=== PATIENT | female | born 1935 | race Caucasian/White ===

== ENCOUNTER → 2018-02-16 | Outpatient (CLI) | payer MEDICARE, MEDICAID ==
--- NOTE | 2018-02-16 12:44 | RADIOLOGY REPORT (SQ) ---
EXAM DESCRIPTION: FOOT RIGHT COMPLETE COMPLETED DATE/TIME: 02/16/2018 11:52 am REASON FOR STUDY: RT TOE PAIN right great toe pain and swelling for 1 month, no known injury COMPARISON: None. NUMBER OF VIEWS: Three views. TECHNIQUE: AP, lateral and oblique radiographic images acquired of the right foot. LIMITATIONS: None. FINDINGS: MINERALIZATION: Osteopenic BONES: No acute fracture or dislocation. No worrisome bone lesions. JOINTS: No effusions. SOFT TISSUES: No soft tissue swelling. No foreign body. OTHER: No other significant finding. IMPRESSION: NEGATIVE STUDY OF THE RIGHT FOOT. NO RADIOGRAPHIC EVIDENCE OF ACUTE INJURY. TECHNICAL DOCUMENTATION: JOB ID: [id number] [employer]- All Rights Reserved Reading location - IP/workstation name: [email or web address]
== END ==
LOC: OD 11:23
PROVIDERS: ATTEND Family Medicine
DX: M79.674 Pain in right toe(s) (principal)

== ENCOUNTER 2018-08-14 16:44 | Inpatient (IN) | payer MEDICARE, MEDICAID ==
[2018-08-14] MEDS ORDERED: METOCLOPRAMIDE HCL INJ/PF 10 MG/2 ML SDV IV ONE (18:26)
--- NOTE | 2018-08-14 18:54 | RADIOLOGY REPORT (SQ) ---
EXAM DESCRIPTION: CT HEAD WITHOUT COMPLETED DATE/TIME: 08/14/2018 6:39 pm REASON FOR STUDY: Headache, known mass COMPARISON: CT 03/16/2015 MR 03/16/2015 TECHNIQUE: Axial images acquired through the brain without intravenous contrast. Images reviewed wi th bone, brain and subdural windows. Additional sagittal and coronal reconstructions were generated. Images stored on PACS. All CT scanners at this facility use dose modulation, iterative reconstruction, and/or weight based d osing when appropriate to reduce radiation dose to as low as reasonably achievable (ALARA). [facility]: Dose Right [facility]: CareDose [facility]: Dose Right [facility]: Teradose 4D [facility]: [employer] RADIATION DOSE: CT Rad equipment meets quality standard of care and radiation dose reduction techniq ues were employed. CTDIvol: 53.2 mGy. DLP: 991 mGy-cm. mGy. LIMITATIONS: None. FINDINGS: VENTRICLES: Normal size and contour. CEREBRUM: There is enlarging extra-axial mass in the superolateral aspect of the right frontal lobe t hat now measures 4 cm. A few mm midline shift is seen. Areas of low density in the white matter most likely chronic small vessel ischemic changes. CEREBELLUM: No masses. No hemorrhage. No alteration of density. No evidence for acute infarction. EXTRAAXIAL SPACES: No fluid collections. No masses. ORBITS AND GLOBE: No intra- or extraconal masses. Normal contour of globe without masses. CALVARIUM: No fracture. PARANASAL SINUSES: No fluid or mucosal thickening. SOFT TISSUES: No mass or hematoma. OTHER: No other significant finding. IMPRESSION: Right frontal mass is significantly larger than on the prior study. Likely meningioma. There is now a few mm midline shift. EVIDENCE OF ACUTE STROKE: NO. COMMENT: Quality ID # [id number]: Final reports with documentation of one or more dose reduction techniques (e.g., Automated exposure control, adjustment of the mA and/or kV according to patient size, use of iterative reconstruction technique) TECHNICAL DOCUMENTATION: JOB ID: [id number] [employer]- All Rights Reserved Reading location - IP/workstation name: [email or web address]
[2018-08-14 19:25] LABS: ABSOLUTE EOSINOPHILS # (AUTO) 0.3 10^3/uL (0.0-0.6); ABSOLUTE LYMPHOCYTES (AUTO) 2.9 10^3/uL (0.5-4.7); ABSOLUTE MONOCYTES (AUTO) 0.4 10^3/uL (0.1-1.4); ABSOLUTE NEUT (AUTO) 2.8 10^3/uL (1.7-8.2); BASOPHILS % (AUTO) 0.7 % (0-2); HEMATOCRIT 33.5 % (36.0-47.0); HEMOGLOBIN 11.6 g/dL (12.0-15.5); LYMPHOCYTES % (AUTO) 45.6 % (13-45); MEAN CORPUSCULAR HEMOGLOBIN 35.8 pg (27.0-33.4); MEAN CORPUSCULAR HGB CONC 34.6 g/dL (32.0-36.0); MEAN CORPUSCULAR VOLUME 104 fl (80-97); MONOCYTES % (AUTO) 6.1 % (3-13); PLATELET COUNT 190 10^3/uL (150-450); RED BLOOD COUNT 3.24 10^6/uL (3.72-5.28); RED CELL DISTRIBUTION WIDTH 14.5 % (11.5-14.0); SEGMENTED NEUTROPHILS % (AUTO) 43.6 % (42-78); TOTAL CELLS COUNTED % (AUTO) 100 %; WHITE BLOOD COUNT 6.3 10^3/uL (4.0-10.5)
[2018-08-14 19:33] LABS: INTERNATIONAL RATION (INR) 1.34; PROTHROMBIN TIME 17.2 SEC (11.4-15.4)
[2018-08-14 19:34] LABS: PARTIAL THROMBOPLASTIN TIME 38.7 SEC (23.5-35.8)
[2018-08-14 19:38] LABS: ANION GAP 8 (5-19); BLOOD UREA NITROGEN 20 mg/dL (7-20); CALCIUM 9.5 mg/dL (8.4-10.2); CARBON DIOXIDE 22 mmol/L (22-30); CHLORIDE 108 mmol/L (98-107); GLUCOSE 92 mg/dL (75-110); POTASSIUM 4.4 mmol/L (3.6-5.0); SODIUM 138.3 mmol/L (137-145)
[2018-08-14] MEDS ORDERED: DEXAMETHASONE SOD PHOS INJ 10 MG/1 ML VIAL IV ONE (20:01)
--- NOTE | 2018-08-14 20:01 | ER Document Report ---
ED General - General Chief Complaint: Headache Stated Complaint: HEADACHE Time Seen by Provider: 08/14/18 18:25 Cannot obtain history due to: Altered mental status Notes: Patient is an 82-year-old female with a past medical history of a right frontal meningioma, atrial fibrillation, hypertension who presents with family due to concern of a headache and increasing lethargy throughout the day today. Family states the patient has not been acting like herself, has seemed increasingly confused. The patient herself is extremely lethargic on my assessment, does not provide any meaningful history. Family states the patient has been following with neurology and neurosurgery at [facility] and has been diagnosed as having recurrent seizures due to the intra-cranial mass. TRAVEL OUTSIDE OF THE [place] IN LAST 30 DAYS: No - Related Data Allergies/Adverse Reactions: hydromorphone HCl [From Dilaudid] Allergy (Verified 03/16/15 14:54) levofloxacin [From Levaquin] Allergy (Verified 03/16/15 14:54) lisinopril [Lisinopril] Allergy (Verified 03/16/15 14:54) Angioneurotic Edema Sulfa (Sulfonamide Antibiotics) Allergy (Verified 03/16/15 14:54) tetracycline [Tetracycline] Allergy (Verified 03/16/15 14:54) fluticasone [Fluticasone] Adverse Reaction (Verified 03/16/15 14:54) Anxiety salmeterol [Salmeterol] Adverse Reaction (Verified 03/16/15 14:54) Past Medical History - General Information source: Relative - Social History Smoking Status: Former Smoker Chew tobacco use (# tins/day): No Drug Abuse: None Lives with: Family Family History: CAD, CVA, Hypertension Patient has suicidal ideation: No Patient has homicidal ideation: No - Past Medical History Cardiac Medical History: Reports: Hx Atrial Fibrillation, Hx Congestive Heart Failure, Hx Hypercholesterolemia, Hx Hypertension, Hx Peripheral Vascular Disease Pulmonary Medical History: Reports: Hx COPD Neurological Medical History: Reports: Hx Migraine, Hx Seizures Renal/ Medical History: Denies: Hx Peritoneal Dialysis GI Medical History: Reports: Hx Diverticulitis Past Surgical History: Reports: Hx Bowel Surgery - abdominal aortic mesh, Hx Cardiac Surgery, Hx Hysterectomy, Hx Orthopedic Surgery - lower back - Immunizations Hx Diphtheria, Pertussis, Tetanus Vaccination: No Review of Systems - Review of Systems -: Yes ROS unobtainable due to patient's medical condition Physical Exam - Vital signs Vitals: Temp Pulse Resp BP Pulse Ox 98.2 F 110 H 20 143/65 H 99 08/14/18 16:56 08/14/18 16:56 08/14/18 16:56 08/14/18 16:56 08/14/18 16:56 Interpretation: Hypertensive, Tachycardic Notes: PHYSICAL EXAMINATION: GENERAL: Lethargic, lying in bed, not speaking HEAD: Atraumatic, normocephalic. EYES: Pupils equal round and reactive to light, extraocular movements intact, sclera anicteric, conjunctiva are normal. ENT: nares patent, oropharynx clear without exudates. Moderately dry mucous membranes. NECK: Normal range of motion, supple without lymphadenopathy LUNGS: Breath sounds clear to auscultation bilaterally and equal. No wheezes rales or rhonchi. HEART: Regular tachycardia without murmurs ABDOMEN: Soft, nontender, normoactive bowel sounds. No guarding, no rebound. No masses appreciated. EXTREMITIES: no pitting or edema. No cyanosis. NEUROLOGICAL: Face symmetric. Tongue protrudes midline. Extraocular motions intact. Pupils are 2 mm and equally reactive. Not speaking or responding appropriately to questions. Follows commands in all extremities slowly. Appears to have equal strength bilaterally although somewhat difficult to ascertain as patient has difficulty following formal strength testing commands. Sensation is grossly intact throughout. PSYCH: Lethargic, not answering questions SKIN: Warm, Dry, normal turgor, no rashes or lesions noted. Course - Re-evaluation Re-evalutation: 08/14/18 19:55 Presentation of lethargic, 82-year-old female, does not say much of anything while I am in the room. Presents with family states patient has had a progressively worsening headache throughout the day today and has become increasingly confused and lethargic. CT the head does show that her meningioma is now 4 cm with approximately 3 mm of midline shift, likely the cause of the patient's current clinical presentation. I had an extended conversation with the family regarding the patient's overall very poor prognosis. We did discuss that a neurosurgical option could potentially be life saving although we did review at length the multitude of complications for which the patient is at risk given her advanced age and medical comorbidities. After this conversation, the family did elect that I contacted [facility], request transfers that they can again discuss with neurosurgery at [facility] as well as have a palliative care consultation. I did emphasize that given the patient's lethargy, surgery would likely be considered urgent or emergent. I have contacted [facility] and requested transfer although they notify me they do not currently have any beds. The patient has received metoclopramide for her headache with some relief. Dexamethasone is also been administered. Her neurologic exam is without focality, she is delayed in her response to all commands but does follow all 4 extremities. She has no focal weakness. She is globally confused, states only her name. Family is clear to state that this is not baseline. 08/14/18 21:10 [address] Dietrich the neurosurgeon on-call at [facility], advises loading the patient with Keppra, states that the patient can be transferred to [facility] but they do not have any beds and that the patient will have to be placed on a wait list. He is not currently the accepting physician, has requested that medicine admit the patient. 08/14/18 21:57 I did speak with Dr. Clement Abrams who accepted the patient. Shortly thereafter I again discussed with the family about the plan of care and they informed me that after our initial conversation they have continued to pray and think about it and I decided that they do not want to proceed with any kind of surgical intervention or any aggressive intervention of any kind. They requested inpatient hospitalization for comfort measures followed by transition to home hospice. Will contact Dr. Yin to discuss. 08/14/18 22:[address] Yin who has accepted the patient for admission. - Vital Signs Vital signs: Temp Pulse Resp BP Pulse Ox 98.2 F 110 H 19 123/98 H 97 08/14/18 16:56 08/14/18 16:56 08/15/18 00:01 08/15/18 00:01 08/15/18 00:01 - Laboratory Result Diagrams: 08/14/18 19:05 08/14/18 19:05 Laboratory results interpreted by me: 08/14/18 08/14/18 08/14/18 19:05 19:05 19:05 RBC 3.24 L Hgb 11.6 L Hct 33.5 L MCV 104 H MCH 35.8 H RDW 14.5 H Lymphocytes % 45.6 H PT 17.2 H APTT 38.7 H Chloride 108 H Est GFR (Non-Af Amer) 50 L - Diagnostic Test Radiology reviewed: Image reviewed, Reports reviewed Radiology results interpreted by me: 08/14/18 22:35 CT head: Mass in the right frontal lobe with slight midline shift right to left Critical Care Note - Critical Care Note Total time excluding time spent on procedures (mins): 40 Comments: Critical care time spent obtaining history from patient or surrogate, discussions with consultants, development of treatment plan with patient or surrogate, evaluation of patient's response to treatment, examination of patient, ordering and performing treatments and interventions, ordering and review of laboratory studies, re-evaluation of patient's condition, ordering and review of radiographic studies and review of old charts Discharge - Discharge Clinical Impression: Encephalopathy, Seizure disorder, Intracranial mass, Lethargy Condition: Fair Disposition: ADMITTED INPATIENT Admitting Provider: Hospitalist Unit Admitted: Medical Floor
[2018-08-14] MEDS ORDERED: LEVETIRACETAM 1000 MG/NACL-ISO 1,000 MG/100 ML RTUPB IV ONE (21:09)
[2018-08-14] MEDS ORDERED: DEXAMETHASONE SOD PHOS INJ 10 MG/1 ML VIAL IV SCH (22:00)
[2018-08-14] MEDS ORDERED: ONDANSETRON HCL INJ/PF 4 MG/2 ML SDV IV PRN (22:28)
[2018-08-14] MEDS ORDERED: ACETAMINOPHEN 325 MG TABLET PO PRN (22:28)
[2018-08-14] MEDS ORDERED: LORAZEPAM 0.5 MG TABLET PO PRN (22:32)
[2018-08-15] MEDS: MORPHINE SULFATE 10 MG/ML INJ IV PRN ×3 (01:06→10:31)
--- NOTE | 2018-08-15 05:23 | PDOC H&P ---
History of Present Illness Admission Date/PCP: 08/14/18 22:45 SHIRA DURAN DO Patient complains of: Headache History of Present Illness: LENKA HARTMANN is a 82 year old female with a past medical history of meningioma. Presenting with lethargy. Family is prompted to emergency room for 24 hours of confusion and lethargy with headache. In the emergency room she is found to have a 4 cm meningioma with 3 mm of midline shift. Given the patient's grave prognosis family at bedside elects for comfort measures only. She is started on dexamethasone and Keppra then referred to the hospitalist for admission. Past Medical History Cardiac Medical History: Reports: Atrial Fibrillation, Congestive Heart Failure, Hyperlipidema, Hypertension, Peripheral Vascular Disease Pulmonary Medical History: Reports: Chronic Obstructive Pulmonary Disease (COPD) Neurological Medical History: Reports: Migraine, Seizures GI Medical History: Reports: Diverticulitis Past Surgical History Past Surgical History: Reports: Hysterectomy, Orthopedic Surgery - lower back Social History Information Source: [facility] [employer], [facility], 1928–1983 Records Lives with: Family Smoking Status: Former Smoker - Advance Directive Resuscitation Status: Comfort Measures Only Family History Family History: CAD, CVA, Hypertension Parental Family History Reviewed: Yes Children Family History Reviewed: Yes Sibling(s) Family History Reviewed.: Yes Medication/Allergy Home Medications: Alendronate Sodium [Fosamax] 70 mg PO 03/16/15 Apixaban [Eliquis 5 mg Tablet] 5 mg PO BID 03/16/15 Cholecalciferol (Vitamin D3) [D3-2000] 2,000 unit PO DAILY 03/16/15 Diltiazem HCl [Diltiazem 24Hr ER] 240 mg PO DAILY 03/16/15 Levetiracetam 250 mg PO BID 03/16/15 Levothyroxine Sodium [Synthroid 0.112 mg Tablet] 112 mcg PO DAILY 03/16/15 Lorazepam [Ativan 0.5 mg Tablet] 0.5 mg PO QID PRN 03/16/15 Multivitamin [Multivitamins] 1 each PO DAILY 03/16/15 Nitroglycerin [Nitrostat 0.4 mg (1/150 Gr) Tabs 25/Bottle] 1 tab SL Q5MP PRN 03/16/15 Omeprazole 20 mg PO DAILY 03/16/15 Paroxetine HCl [Paxil] 30 mg PO DAILY 08/06/15 Prochlorperazine Maleate 10 mg PO Q6H PRN 03/16/15 Spironolactone 25 mg PO DAILY 03/16/15 Allergies/Adverse Reactions: hydromorphone HCl [From Dilaudid] Allergy (Verified 03/16/15 14:54) levofloxacin [From Levaquin] Allergy (Verified 03/16/15 14:54) lisinopril [Lisinopril] Allergy (Verified 03/16/15 14:54) Angioneurotic Edema Sulfa (Sulfonamide Antibiotics) Allergy (Verified 03/16/15 14:54) tetracycline [Tetracycline] Allergy (Verified 03/16/15 14:54) fluticasone [Fluticasone] Adverse Reaction (Verified 03/16/15 14:54) Anxiety salmeterol [Salmeterol] Adverse Reaction (Verified 03/16/15 14:54) Review of Systems ROS unobtainable: Due to mental status - Sedated Physical Exam Vital Signs: Temp Pulse Resp BP Pulse Ox 98.2 F 110 H 19 123/98 H 97 08/14/18 16:56 08/14/18 16:56 08/15/18 00:01 08/15/18 00:01 08/15/18 00:01 Intake & Output 08/13/18 08/14/18 08/15/18 11:59 11:59 11:59 Intake Total 100 Balance 100 Weight 80.4 kg General appearance: PRESENT: severe distress, other - Pale chronically ill- appearing, moaning Head exam: PRESENT: atraumatic, normocephalic Eye exam: PRESENT: conjunctiva pink, EOMI, PERRLA. ABSENT: scleral icterus Ear exam: PRESENT: normal external ear exam Mouth exam: PRESENT: moist, tongue midline Neck exam: ABSENT: carotid bruit, JVD, lymphadenopathy, thyromegaly Respiratory exam: PRESENT: clear to auscultation baylee. ABSENT: rales, rhonchi, wheezes Cardiovascular exam: PRESENT: RRR. ABSENT: diastolic murmur, rubs, systolic murmur Pulses: PRESENT: normal dorsalis pedis pul Vascular exam: PRESENT: normal capillary refill GI/Abdominal exam: PRESENT: normal bowel sounds, soft. ABSENT: distended, guarding, mass, organolmegaly, rebound, tenderness Rectal exam: PRESENT: deferred Extremities exam: PRESENT: full ROM. ABSENT: calf tenderness, clubbing, pedal edema Neurological exam: PRESENT: altered, oriented to person. ABSENT: oriented to place, motor sensory deficit Psychiatric exam: PRESENT: appropriate affect, normal mood. ABSENT: homicidal ideation, suicidal ideation Focused psych exam: PRESENT: restlessness Skin exam: PRESENT: dry, intact, warm. ABSENT: cyanosis, rash Results Laboratory Results: 08/14/18 19:05 08/14/18 19:05 08/14/18 08/14/18 19:05 19:05 WBC 6.3 RBC 3.24 L Hgb 11.6 L Hct 33.5 L MCV 104 H MCH 35.8 H MCHC 34.6 RDW 14.5 H Plt Count 190 Seg Neutrophils % 43.6 Lymphocytes % 45.6 H Monocytes % 6.1 Eosinophils % 4.0 Basophils % 0.7 Absolute Neutrophils 2.8 Absolute Lymphocytes 2.9 Absolute Monocytes 0.4 Absolute Eosinophils 0.3 Absolute Basophils 0.0 Sodium 138.3 Potassium 4.4 Chloride 108 H Carbon Dioxide 22 Anion Gap 8 BUN 20 Creatinine 1.05 Est GFR ( Amer) > 60 Est GFR (Non-Af Amer) 50 L Glucose 92 Calcium 9.5 Impressions: Head CT 08/14/18 18:25 IMPRESSION: Right frontal mass is significantly larger than on the prior study. Likely meningioma. There is now a few mm midline shift. EVIDENCE OF ACUTE STROKE: NO. Assessment & Plan - Diagnosis (1) Intracranial mass Is this a current diagnosis for this admission?: Yes Plan: Inoperable large meningioma with mass-effect and midline shift. Dexamethasone and Keppra initiated. Comfort measures only (2) Encephalopathy Is this a current diagnosis for this admission?: Yes Plan: Secondary to #1, morphine (3) Lethargy Is this a current diagnosis for this admission?: Yes Plan: Secondary to #1, supportive care comfort measures only - Time Time Spent: 30 to 50 Minutes - Inpatient Certification Medical Necessity: Need Close Monitoring Due to Risk of Patient Decompensation
[2018-08-15] MEDS: DEXAMETHASONE SOD PHOS INJ 10 MG/1 ML VIAL IV SCH ×3 (05:36→21:27)
[2018-08-15] MEDS: DILTIAZEM HCL 240 MG CAPSULE.CR PO SCH (10:31)
--- NOTE | 2018-08-15 14:05 | PDOC PROGRESS REPORT ---
Subjective Progress Note for:: 08/15/18 Subjective:: This is 82 years old female patient brought by family members with chief complaint of lethargy confusion and headache. Her CT scan of the head depicted large mass over the right frontal lobe causing midline shift to the left. The radiologist assumed this might to be a meningioma. Because of patient is serious situation the caretakers opted for comfort care. 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 ABSENT: diastolic murmur, rubs, systolic murmur Neurological exam: PRESENT: alert, awake Results Laboratory Results: 08/14/18 19:05 08/14/18 19:05 08/14/18 08/14/18 19:05 19:05 WBC 6.3 RBC 3.24 L Hgb 11.6 L Hct 33.5 L MCV 104 H MCH 35.8 H MCHC 34.6 RDW 14.5 H Plt Count 190 Seg Neutrophils % 43.6 Lymphocytes % 45.6 H Monocytes % 6.1 Eosinophils % 4.0 Basophils % 0.7 Absolute Neutrophils 2.8 Absolute Lymphocytes 2.9 Absolute Monocytes 0.4 Absolute Eosinophils 0.3 Absolute Basophils 0.0 Sodium 138.3 Potassium 4.4 Chloride 108 H Carbon Dioxide 22 Anion Gap 8 BUN 20 Creatinine 1.05 Est GFR ( Amer) > 60 Est GFR (Non-Af Amer) 50 L Glucose 92 Calcium 9.5 Impressions: Head CT 08/14/18 18:25 IMPRESSION: Right frontal mass is significantly larger than on the prior study. Likely meningioma. There is now a few mm midline shift. EVIDENCE OF ACUTE STROKE: NO. Assessment & Plan - Diagnosis (1) Encephalopathy Is this a current diagnosis for this admission?: Yes Plan: Due to #2 (2) Intracranial mass Is this a current diagnosis for this admission?: Yes Plan: Right frontal mass probably meningioma. Patient has been started on dexamethasone (3) Seizure disorder Is this a current diagnosis for this admission?: Yes Plan: Continue Keppra (4) Atrial fibrillation with rapid ventricular response Is this a current diagnosis for this admission?: Yes Plan: Rate controlled
[2018-08-15] MEDS ORDERED: DIPHENHYDRAMINE HCL 25 MG/10 ML UDC PO PRN (18:41)
[2018-08-15] MEDS ORDERED: DIPHENHYDRAMINE HCL 25 MG/10 ML UDC ONE (18:58)
[2018-08-16] MEDS: DEXAMETHASONE SOD PHOS INJ 10 MG/1 ML VIAL IV SCH ×3 (05:26→21:20)
[2018-08-16] MEDS: DILTIAZEM HCL 240 MG CAPSULE.CR PO SCH (09:42)
[2018-08-16] MEDS: GUAIFENESIN 600 MG TABLET.SA PO SCH ×2 (12:52→21:20)
--- NOTE | 2018-08-16 15:29 | PDOC PROGRESS REPORT ---
Subjective Progress Note for:: 08/16/18 Subjective:: his is 82 years old female patient brought by family members with chief complaint of lethargy confusion and headache. Her CT scan of the head depicted large mass over the right frontal lobe causing midline shift to the left. Per patient's daughter, patient has been followed up by a neurosurgeon who scheduled him for surgery. But patient's daughter opted for comfort care because of patient is underlying multiple comorbidities and in discussion with ER attending at [facility]. As patient's conditions improved the daughter changed her mind for the second time and wants to discuss with her neurosurgeon. This morning I seen patient resting in bed and she complains of nagging cough. Otherwise she is awake alert and oriented. 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 ABSENT: rales, rhonchi, wheezes Cardiovascular exam: PRESENT: RRR. ABSENT: diastolic murmur, rubs, systolic murmur Neurological exam: PRESENT: alert, awake Results Laboratory Results: 08/14/18 19:05 08/14/18 19:05 Impressions: Head CT 08/14/18 18:25 IMPRESSION: Right frontal mass is significantly larger than on the prior study. Likely meningioma. There is now a few mm midline shift. EVIDENCE OF ACUTE STROKE: NO. Assessment & Plan - Diagnosis (1) Encephalopathy Is this a current diagnosis for this admission?: Yes Plan: Improving (2) Intracranial mass Is this a current diagnosis for this admission?: Yes Plan: Patient's daughter want to reconsult with neurosurgeon at [facility] who has been following the patient. (3) Seizure disorder Is this a current diagnosis for this admission?: Yes Plan: Continue Keppra (4) Atrial fibrillation with rapid ventricular response Is this a current diagnosis for this admission?: Yes Plan: Rate controlled (5) Bilateral carotid artery stenosis Is this a current diagnosis for this admission?: Yes Plan: The left carotid is totally occluded and the right is 50% stenosed
[2018-08-16] MEDS ORDERED: DIPHENHYDRAMINE HCL 25 MG/10 ML UDC ONE (19:51)
[2018-08-17] MEDS: DEXAMETHASONE SOD PHOS INJ 10 MG/1 ML VIAL IV SCH (05:26)
[2018-08-17] MEDS: DILTIAZEM HCL 240 MG CAPSULE.CR PO SCH (09:45)
[2018-08-17] MEDS: GUAIFENESIN 600 MG TABLET.SA PO SCH (09:45)
--- NOTE | 2018-08-17 11:02 | PDOC DISCHARGE SUMMARY ---
General - Admit/Disc Date/PCP Admission Date/Primary Care Provider: 08/14/18 22:45 SHIRA DURAN, Discharge Date: 08/17/18 - Discharge Diagnosis (1) Encephalopathy Is this a current diagnosis for this admission?: Yes (2) Intracranial mass Is this a current diagnosis for this admission?: Yes (3) Seizure disorder Is this a current diagnosis for this admission?: Yes (4) Atrial fibrillation with rapid ventricular response Is this a current diagnosis for this admission?: Yes (5) Bilateral carotid artery stenosis Is this a current diagnosis for this admission?: Yes - Additional Information Resuscitation Status: Comfort Measures Only Home Medications: Apixaban [Eliquis 5 mg Tablet] 5 mg PO BID 03/16/15 Diltiazem HCl [Diltiazem 24Hr ER] 240 mg PO DAILY 03/16/15 Levetiracetam 500 mg PO BID 03/16/15 Multivitamin [Multivitamins] 1 each PO DAILY 03/16/15 Omeprazole 20 mg PO DAILY 03/16/15 Spironolactone 25 mg PO DAILY 03/16/15 Atorvastatin Calcium [Lipitor 40 mg Tablet] 40 mg PO QHS 08/15/18 Divalproex Sodium [Depakote ER 500 mg Tab.sr] 500 mg PO Q12 08/15/18 Levothyroxine Sodium [Euthyrox] 100 mcg PO QAM 08/15/18 History of Present Illness History of Present Illness: LENKA HARTMANN is a 82 year old female with a past medical history of meningioma. Presenting with lethargy. Family is prompted to emergency room for 24 hours of confusion and lethargy with headache. In the emergency room she is found to have a 4 cm meningioma with 3 mm of midline shift. Given the patient's grave prognosis family at bedside elects for comfort measures only. She is started on dexamethasone and Keppra then referred to the hospitalist for admission. Hospital Course Hospital Course: his is 82 years old female patient brought by family members with chief complaint of lethargy confusion and headache. Her CT scan of the head depicted large mass over the right frontal lobe causing midline shift to the left. Per patient's daughter, patient has been followed up by a neurosurgeon who scheduled him for surgery. But patient's daughter opted for comfort care because of patient is underlying multiple comorbidities and in discussion with ER attending at [facility]. As patient's conditions improved the daughter changed her mind for the second time and wants to discuss with her neurosurgeon. This morning I seen patient resting in bed comfortably. She reports that her cough has subsided and she has large bowel movement. Her vital signs and blood works are within normal limits and patient is stable enough to be discharged today. Physical Exam Vital Signs: Temp Pulse Resp BP Pulse Ox 98.3 F 109 H 18 142/95 H 96 08/17/18 07:24 08/17/18 07:24 08/17/18 07:24 08/17/18 07:24 08/17/18 07:24 Intake & Output 08/16/18 08/17/18 08/18/18 06:59 06:59 06:59 Intake Total 875 978 600 Balance 875 978 600 Weight 78.8 kg General appearance: PRESENT: no acute distress Head exam: PRESENT: atraumatic Eye exam: PRESENT: conjunctiva pink Mouth exam: PRESENT: moist Respiratory exam: PRESENT: clear to auscultation [place]. ABSENT: rales, rhonchi, wheezes Cardiovascular exam: PRESENT: irregular rhythm. ABSENT: diastolic murmur, rubs, systolic murmur Neurological exam: PRESENT: alert, awake, oriented to time, oriented to situation Results Laboratory Results: 08/14/18 19:05 08/14/18 19:05 Impressions: Head CT 08/14/18 18:25 IMPRESSION: Right frontal mass is significantly larger than on the prior study. Likely meningioma. There is now a few mm midline shift. EVIDENCE OF ACUTE STROKE: NO. Qualifiers - * PATIENT BEING DISCHARGED WITH ANY OF THE FOLLOWING DIAGNOSIS: No
[2018-08-17 11:14] VITALS: BP 133/54
== END 2018-08-17 14:55 | disposition home health service (06) | DRG 72 ==
LOC: ER 16:44 → EH 22:45 → 5 08-15 00:41
PROVIDERS: ADMIT Internal Medicine; ATTEND Internal Medicine
DX: G93.40 Encephalopathy, unspecified (principal); D32.0 Benign neoplasm of cerebral meninges; Z51.5 Encounter for palliative care; I65.23 Occlusion and stenosis of bilateral carotid arteries; I11.0 Hypertensive heart disease with heart failure; I50.9 Heart failure, unspecified; I48.91 Unspecified atrial fibrillation; J44.9 Chronic obstructive pulmonary disease, unspecified; G40.909 Epilepsy, unspecified, not intractable, without status epilepticus; I73.9 Peripheral vascular disease, unspecified; E78.5 Hyperlipidemia, unspecified; Z79.899 Other long term (current) drug therapy; Z90.710 Acquired absence of both cervix and uterus; Z87.19 Personal history of other diseases of the digestive system; Z88.2 Allergy status to sulfonamides; Z88.8 Allergy status to other drugs, medicaments and biological substances
CPT/HCPCS: 36415; 70450; 80048; 85025; 85610; 85730; 96365; 96375; 99291; J1100; J1953; J2270; J2405; J2765; J3490